=== PATIENT | male | born 1980 | race Caucasian/White ===

== ENCOUNTER 2019-05-06 16:24 | Emergency (ER) | payer OTHER ==
[~2019-05-06] VITALS: Ht 182.9 cm; Wt 81.6 kg
[2019-05-06 16:31] VITALS: BP_SYST 137
--- NOTE | 2019-05-06 16:37 | NUR ---
Patient triaged and placed in waiting room. VSS and patient appears in no acute distress at this time. Accompanied by self, awaiting available bed, and MD notified of need for MSE.
--- NOTE | 2019-05-06 17:02 | NUR ---
Patient to ER Chair 1 for evaluation. Side rails up. Report given to NATHAN White
--- NOTE | 2019-05-06 17:13 | NUR ---
ER Dr. Tillman at bedside examining patient.
--- NOTE | 2019-05-06 17:30 | NUR ---
Note kadi in ED - 05/06/19 at 1826 by CORINE Patient presented to ER with severe right eye pain. patientr A&Ox4, arrived with BLs, pain 04/24. Patient states he has Herpes outbreak x3 days but today pain became sever while driving, he called 911 & brought to ER. Patient denies N/V/D, denies other sahil hx.
--- NOTE | 2019-05-06 17:40 | NUR ---
PLACED IN BED 2 FOR EYE EXAM.
--- NOTE | 2019-05-06 17:43 | NUR ---
ER Dr. Tillman at bedside examining patient.
--- NOTE | 2019-05-06 17:45 | NUR ---
Patient presented to ER with severe right eye pain. patientr A&Ox4, arrived with BLs, pain 8/. Patient states he has Herpes outbreak x3 days but today pain became sever while driving, he called 911 & brought to ER. Patient denies N/V/D, denies other sahil hx.
--- NOTE | 2019-05-06 18:26 | NUR ---
Patient given written and verbal discharge instructions and verbalizes understanding. ER MD discussed with patient the results and treatment provided. Patient in stable condition. ID arm band removed. Rx of given. Patient educated on pain management and to follow up with PMD. Pain Scale 2/10 tolerable for pt. Opportunity for questions provided and answered. Medication side effect fact sheet provided.
[2019-05-06 18:30] VITALS: BP_SYST 137
== END 2019-05-06 18:26 | disposition home or self-care (01) ==
LOC: SED 16:24
DX: B02.8 Zoster with other complications (principal); Z91.030 Bee allergy status; Z88.8 Allergy status to other drugs, medicaments and biological substances
CPT/HCPCS: 99283